=== PATIENT | female | born 1975 | race Caucasian/White ===

== ENCOUNTER 2023-09-02 18:12 | Inpatient (IN) | payer BC, OTHER ==
[~2023-09-02 18:12] MED LIST: Iopamidol-370 76% 500 ML MDV (1 ML CHARGE) ONE
[2023-09-02 18:51] LABS: #Eosinphils 0.2 thou/uL (0.0-0.7); #Monocytes 0.4 thou/uL (0.11-0.59); #Neutrophils 5.1 thou/uL (1.40-6.50); %Basophils 0.1 % (0.0-1.0); %Lymphocytes 29.3 % (21.0-51.0); %Monocytes 4.9 % (0.0-10.0); %Neutrophils 63.3 % (42.0-75.0); Hematocrit 39.7 % (36.0-47.0); Mean Corpuscular HGB CONC 32.7 g/dL (32.0-36.0); Mean Corpuscular Hemoglobin 29.6 pg (27.0-31.0); Mean Corpuscular Volume 90.4 fl (78.0-98.0); Platelet Count 201 10x3/uL (130-400); RBC Distribution Width 12.6 % (11.5-14.5); Red Blood Cell (RBC) Count 4.39 mill/uL (4.20-5.40)
[2023-09-02] MEDS ORDERED: Morphine 2 MG/ML VIAL ONE ×2 (18:51→20:28)
[2023-09-02] MEDS ORDERED: Ondansetron PF 4 MG/2 ML Vial ONE (18:51)
[2023-09-02] MEDS ORDERED: Morphine 4 MG/ML VIAL ONE ×3 (18:51→22:40)
[2023-09-02 19:08] LABS: ALT (SGPT) 18 U/L (8-55); AST (SGOT) 14 U/L (5-34); Albumin 4.1 g/dL (3.5-5.0); Alkaline Phosphatase 78 U/L (40-110); Anion Gap 17 mmol/L (10-20); BUN (Urea Nitrogen) 9 mg/dL (7.0-18.7); Bilirubin, Total 0.2 mg/dL (0.2-1.2); Calc. Creatinine Clearance 0 mL/min (70-130); Calcium 9.4 mg/dL (7.8-10.44); Carbon Dioxide 25 mmol/L (22-29); Chloride 104 mmol/L (98-107); Estimated GFR 74; Globulin 2.8 g/dL (2.4-3.5); Glucose 93 mg/dL (70-105); Lipase 34 U/L (8-78); Potassium 3.7 mmol/L (3.5-5.1); Protein, Total 6.9 g/dL (6.0-8.3); Sodium 142 mmol/L (136-145)
[2023-09-02 19:18] LABS: Critical Call Chem-Lactate NUR.MH12 @1918
[2023-09-02 19:23] LABS: Bacteria/HPF None Seen HPF (None Seen); Bilirubin Negative (Negative); Blood, Urine Negative (Negative); CAUTI Indications for Culture Pelvic or flank pain; Clarity Clear (Clear); Glucose, Urine (Dipstick) Normal (Negative); Ketone, Urine Negative (Negative); Leukocyte Negative Leu/uL (Negative); Nitrite Negative (Negative); Protein, Urine (Dipstick) Negative (Neg-Trace); RBC/HPF 0-3 HPF (0-3); Specific Gravity, Urine 1.022 (1.002-1.036); Squamous Epithelial 0-3 HPF (0-3); Urobilinogen Normal mg/dL (Less than 2); WBC/HPF 0-3 HPF (0-3)
[2023-09-02 19:25] LABS: Urine Culture Reflex No No
[2023-09-02] MEDS ORDERED: Ketorolac Tromethamine 30 MG (1 mL) VIAL ONE (19:34)
[2023-09-02] MEDS ORDERED: Sodium Chloride 0.9% 1,000 ML IV SCH (23:30)
[2023-09-02 23:36] LABS: Lactic Acid 1.2 mmol/L (0.5-2.2)
[2023-09-03 01:37] VITALS: BMI 29.2
[2023-09-03] MEDS: GLYCOPYRROLATE/PF 0.2 MG/ML VIAL SLOW IVP SCH (03:05)
[2023-09-03] MEDS: Glycopyrrolate 1 MG TAB PO SCH (04:54)
[2023-09-03] MEDS: Sodium Chloride 0.45% 1,000 ML IV SCH (05:57)
[2023-09-03 06:24] LABS: #Eosinphils 0.1 thou/uL (0.0-0.7); #Monocytes 0.3 thou/uL (0.11-0.59); #Neutrophils 2.4 thou/uL (1.40-6.50); %Basophils 0.2 % (0.0-1.0); %Eosinophils 2.2 % (0.0-10.0); %Lymphocytes 38.8 % (21.0-51.0); %Monocytes 5.9 % (0.0-10.0); %Neutrophils 52.7 % (42.0-75.0); Hematocrit 35.8 % (36.0-47.0); Hemoglobin 11.2 g/dL (12.0-16.0); Mean Corpuscular HGB CONC 31.3 g/dL (32.0-36.0); Mean Corpuscular Hemoglobin 28.7 pg (27.0-31.0); Mean Corpuscular Volume 91.8 fl (78.0-98.0); Mean Platelet Volume 11.8 fL (7.4-10.4); Platelet Count 172 10x3/uL (130-400); RBC Distribution Width 12.8 % (11.5-14.5); White Blood Cell (WBC) Count 4.6 10x3/uL (4.8-10.8)
[2023-09-03] MEDS: Magnesium Citrate 300 ML BOT PO SCH (06:54)
[2023-09-03 07:21] LABS: ALT (SGPT) 310 U/L (8-55); AST (SGOT) 458 U/L (5-34); Albumin 3.1 g/dL (3.5-5.0); Alkaline Phosphatase 73 U/L (40-110); Anion Gap 11 mmol/L (10-20); BUN (Urea Nitrogen) 7 mg/dL (7.0-18.7); Bilirubin, Total 0.3 mg/dL (0.2-1.2); Calc. Creatinine Clearance 110 mL/min (70-130); Calcium 8.1 mg/dL (7.8-10.44); Carbon Dioxide 21 mmol/L (22-29); Chloride 112 mmol/L (98-107); Estimated GFR 96; Globulin 2.7 g/dL (2.4-3.5); Glucose 81 mg/dL (70-105); Potassium 4.6 mmol/L (3.5-5.1); Protein, Total 5.8 g/dL (6.0-8.3); Sodium 139 mmol/L (136-145)
[2023-09-03] MEDS: Pantoprazole 40 MG VIAL IVP SCH (09:29)
[2023-09-03] MEDS ORDERED: SUMAtriptan Succinate 6 MG/0.5 ML VIAL SC PRN (11:29)
[2023-09-03] MEDS: Ketorolac Tromethamine 30 MG (1 mL) VIAL IVP SCH (11:40)
[2023-09-03 13:11] LABS: Lactic Acid 0.5 mmol/L (0.5-2.2)
[2023-09-03 13:17] LABS: ALT (SGPT) 286 U/L (8-55); AST (SGOT) 291 U/L (5-34); Albumin 3.3 g/dL (3.5-5.0); Alkaline Phosphatase 84 U/L (40-110); Anion Gap 11 mmol/L (10-20); BUN (Urea Nitrogen) 7 mg/dL (7.0-18.7); Bilirubin, Total 0.3 mg/dL (0.2-1.2); Calc. Creatinine Clearance 109 mL/min (70-130); Calcium 8.2 mg/dL (7.8-10.44); Carbon Dioxide 23 mmol/L (22-29); Chloride 108 mmol/L (98-107); Estimated GFR 94; Globulin 2.1 g/dL (2.4-3.5); Glucose 88 mg/dL (70-105); Lipase 28 U/L (8-78); Potassium 4.1 mmol/L (3.5-5.1); Protein, Total 5.4 g/dL (6.0-8.3); Sodium 138 mmol/L (136-145)
[2023-09-03] MEDS: Morphine 4 MG/ML VIAL SLOW IVP SCH (13:55)
[2023-09-03] MEDS ORDERED: Morphine 4 MG/ML VIAL SLOW IVP PRN (15:00)
[2023-09-03] MEDS ORDERED: Lactulose 20 GM (30 mL) UDCUP PO SCH (15:00)
[2023-09-03] MEDS: Bupropion 150 MG SR.TAB PO SCH ×2 (15:08→20:56)
[2023-09-03] MEDS: traZODone HCl 50 MG TAB PO SCH ×2 (15:09→20:56)
[2023-09-03] MEDS ORDERED: methylPREDNISolone Sod Succ 40 MG VIAL IVP SCH (15:30)
[2023-09-03] MEDS: Senokot 8.6 MG TAB PO SCH (18:20)
[2023-09-03] MEDS: GoLYTELY 4,000 ml Bottle PO SCH (18:20)
[2023-09-03] MEDS: Fleet Saline Enema 133 ML BOT PR SCH (19:05)
[2023-09-03] MEDS: Nortriptyline 10 MG CAP PO SCH (21:02)
[2023-09-04] MEDS: Ketorolac Tromethamine 30 MG (1 mL) VIAL IVP PRN (00:09)
[2023-09-04 05:05] LABS: #Eosinphils 0.2 thou/uL (0.0-0.7); #Monocytes 0.3 thou/uL (0.11-0.59); #Neutrophils 2.3 thou/uL (1.40-6.50); %Eosinophils 3.9 % (0.0-10.0); %Lymphocytes 42.9 % (21.0-51.0); %Monocytes 5.7 % (0.0-10.0); %Neutrophils 47.1 % (42.0-75.0); Hematocrit 35.3 % (36.0-47.0); Hemoglobin 11.4 g/dL (12.0-16.0); Mean Corpuscular HGB CONC 32.3 g/dL (32.0-36.0); Mean Corpuscular Hemoglobin 29.8 pg (27.0-31.0); Mean Corpuscular Volume 92.4 fl (78.0-98.0); Mean Platelet Volume 11.4 fL (7.4-10.4); Platelet Count 156 10x3/uL (130-400); RBC Distribution Width 12.9 % (11.5-14.5); Red Blood Cell (RBC) Count 3.82 mill/uL (4.20-5.40); White Blood Cell (WBC) Count 4.9 10x3/uL (4.8-10.8)
[2023-09-04 05:37] LABS: ALT (SGPT) 224 U/L (8-55); AST (SGOT) 157 U/L (5-34); Albumin 3.1 g/dL (3.5-5.0); Alkaline Phosphatase 80 U/L (40-110); Anion Gap 9 mmol/L (10-20); BUN (Urea Nitrogen) 7 mg/dL (7.0-18.7); Bilirubin, Total 0.3 mg/dL (0.2-1.2); Calc. Creatinine Clearance 100 mL/min (70-130); Calcium 8.3 mg/dL (7.8-10.44); Carbon Dioxide 26 mmol/L (22-29); Chloride 110 mmol/L (98-107); Estimated GFR 85; Globulin 2.2 g/dL (2.4-3.5); Glucose 83 mg/dL (70-105); Potassium 4.2 mmol/L (3.5-5.1); Protein, Total 5.3 g/dL (6.0-8.3); Sodium 141 mmol/L (136-145)
[2023-09-04] MEDS ORDERED: traZODone HCl 50 MG TAB PO SCH (09:00)
[2023-09-04] MEDS ORDERED: Nortriptyline 10 MG CAP PO SCH (09:00)
[2023-09-04] MEDS: Escitalopram Oxalate 20 mg Tablet PO SCH (10:41)
[2023-09-04] MEDS: Propranolol 10 MG TAB PO SCH (10:41)
[2023-09-04] MEDS: Ondansetron PF 4 MG/2 ML Vial IVP PRN (17:41)
[2023-09-05 04:24] LABS: ALT (SGPT) 155 U/L (8-55); AST (SGOT) 60 U/L (5-34); Albumin 3.3 g/dL (3.5-5.0); Alkaline Phosphatase 78 U/L (40-110); Anion Gap 12 mmol/L (10-20); BUN (Urea Nitrogen) 6 mg/dL (7.0-18.7); Bilirubin, Total 0.3 mg/dL (0.2-1.2); Calc. Creatinine Clearance 100 mL/min (70-130); Calcium 8.3 mg/dL (7.8-10.44); Carbon Dioxide 28 mmol/L (22-29); Chloride 108 mmol/L (98-107); Estimated GFR 85; Globulin 2.2 g/dL (2.4-3.5); Glucose 92 mg/dL (70-105); Iron 52 ug/dL (50-170); Iron Binding Capacity, Total 234 mcg/dL (265-497); Protein, Total 5.5 g/dL (6.0-8.3); Sodium 144 mmol/L (136-145)
[2023-09-05 04:43] LABS: HBCM Index 0.06 S/CO (0-0.79); HBSAg Index 0.47 S/CO (0-0.99); Hep A IgM AB Non-Reactive (NonReactive); Hep A IgM S/CO 0.23 S/CO (0-0.79); Hep B Surf Ag Non-Reactive S/CO (NonReactive); Hep C IgG Ab Non-Reactive S/CO (NonReactive); Hep C Index 0.11 S/CO (0-0.79); Hepatitis B Core IgM Abs Non-Reactive S/CO (NonReactive)
[2023-09-05] MEDS: GoLYTELY 4,000 ml Bottle PO SCH (11:15)
[2023-09-06] MEDS ORDERED: PROPOFOL 20 ML ONE ×2 (10:03→10:31)
[2023-09-06] MEDS ORDERED: Promethazine HCl 25 MG/ML VIAL IM PRN (10:07)
[2023-09-06] MEDS ORDERED: Ondansetron HCl/PF 4 MG/2 ML Vial IVP PRN (10:07)
[2023-09-06 12:12] LABS: ANA Symphony (Qualitative) Negative (Negative); ANA Symphony (Quantitative) 0.1 Ratio (< 0.7 Negative); EliA Vaculitis New Method **** NEW METHOD ****; Mitochondrial Ab 0.5 U/mL (<4 Negative); dsDNA IgG Antibody 0.6 IU/mL (<10 Negative)
[2023-09-06 17:02] VITALS: BP 130/78; TEMP 97.9
[2023-09-07] MEDS ORDERED: Polyethylene Glycol 3350 17 GM Packet PO SCH (09:00)
== END 2023-09-06 17:21 | disposition home or self-care (01) | DRG 392 ==
LOC: ERS 18:12 → SURG A 23:08 → EDBD 23:08
PROVIDERS: ADMIT Internal Medicine; ATTEND Family Medicine
PROC: 0D9670Z Drainage of Stomach with Drainage Device, Via Natural or Artificial Opening (ICD-10-PCS; principal; 2023-09-02)
PROC: 3E0G76Z Introduction of Nutritional Substance into Upper GI, Via Natural or Artificial Opening (ICD-10-PCS; 2023-09-02)
PROC: 0DBK8ZZ Excision of Ascending Colon, Via Natural or Artificial Opening Endoscopic (ICD-10-PCS; 2023-09-06)
DX: K59.01 Slow transit constipation (principal); E87.20 Acidosis, unspecified; K56.609 Unspecified intestinal obstruction, unspecified as to partial versus complete obstruction; K92.1 Melena; K63.89 Other specified diseases of intestine; G43.909 Migraine, unspecified, not intractable, without status migrainosus; F17.210 Nicotine dependence, cigarettes, uncomplicated; R74.01 Elevation of levels of liver transaminase levels; K64.8 Other hemorrhoids; Z98.84 Bariatric surgery status; Z88.0 Allergy status to penicillin; Z80.0 Family history of malignant neoplasm of digestive organs; Z90.49 Acquired absence of other specified parts of digestive tract; Z90.710 Acquired absence of both cervix and uterus
CPT/HCPCS: 36415; 43753; 74019; 74177; 74183; 76705; 80053; 80074; 81001; 82103; 82390; 83516; 83540; 83550; 83605; 83690; 85025; 86015; 86038; 86225; 86900; 86901; 88305; 93005; 96374; 96375; 96376; C9113; J1885; J2270; J2272; J2405; J2704; J3490; Q9967